=== PATIENT | female | born 1950 | race Caucasian/White ===

== ENCOUNTER → 2018-04-29 | Outpatient (CLI) | payer MEDICARE ==
[2018-05-01 13:07] LABS: DOPAMINE, URINE 69 ug/L (Undefined)
[2018-05-01 18:06] LABS: METANEPHRINE, UR 35 ug/L (Undefined)
[2018-05-03 22:10] LABS: CREATININE, URINE 35.3 mg/dL (Not Estab.)
== END | disposition home or self-care (01) ==
LOC: LAB SHORT 06:00 → LAB 06:00 → LAB FUT 04-26 11:30
PROVIDERS: Internal Medicine
DX: R10.12 Left upper quadrant pain (principal)
CPT/HCPCS: 81050; 82384; 82570; 83497; 83835

== ENCOUNTER → 2018-05-06 | Outpatient (CLI) | payer MEDICARE ==
[2018-05-08 15:06] LABS: HPV 16 Negative (Negative); HPV 18 Negative (Negative); HPV OTHER HR TYPES Negative (Negative)
== END | disposition home or self-care (01) ==
LOC: LAB 17:25 → LAB SHORT 17:25
PROVIDERS: Nurse Practitioner Women's Health
DX: Z12.72 Encounter for screening for malignant neoplasm of vagina (principal)
CPT/HCPCS: 87624; G0123

== ENCOUNTER 2018-06-03 12:52 | Day surgery (SDC) | payer MEDICARE ==
[~2018-06-03] VITALS: Ht 162.6 cm; Wt 59.1 kg
[~2018-06-03 12:52] MED LIST: ALFU10; ATOR10; DILT120; ESTRADIOL1 EAC2; Omeprazole20 M1; Tambocor100 MG
--- NOTE | 2018-06-03 15:02 | NUR ---
06/03/18 1502 Milagro Toney PT. VERBALIZES RIGHT LOWER LIP BEING SORE. PT. SHOWING RN SORE ON HER LIP. PT. INSTRUCTED THAT SHE WAS TRYING TO TALK & PUSHING OUT THE BITE BLOCK & PROBABLY BIT HER LIP. PT. DOES VERBALIZES THAT SHE DOES REMEMBER THAT SHE WAS TRYING TO SAY SOMETHING WITH THE BITE BLOCK IN.
== END 2018-06-03 15:00 | disposition home or self-care (01) ==
LOC: ORSCSDS 12:52
PROVIDERS: Internal Medicine Gastroenterology
PROC: 0DBE8ZX Excision of Large Intestine, Via Natural or Artificial Opening Endoscopic, Diagnostic (ICD-10-PCS; principal; 2018-06-03 14:15)
PROC: 0DB98ZX Excision of Duodenum, Via Natural or Artificial Opening Endoscopic, Diagnostic (ICD-10-PCS; principal; 2018-06-03 14:15)
PROC: 0DB68ZX Excision of Stomach, Via Natural or Artificial Opening Endoscopic, Diagnostic (ICD-10-PCS; principal; 2018-06-03 14:15)
DX: R19.7 Diarrhea, unspecified (principal); K22.10 Ulcer of esophagus without bleeding; K31.7 Polyp of stomach and duodenum; K64.8 Other hemorrhoids; K57.30 Diverticulosis of large intestine without perforation or abscess without bleeding; R10.9 Unspecified abdominal pain; I48.91 Unspecified atrial fibrillation; E78.5 Hyperlipidemia, unspecified; Z79.899 Other long term (current) drug therapy; Z87.891 Personal history of nicotine dependence
CPT/HCPCS: 88305; 88342; J7120

== ENCOUNTER 2018-11-04 04:08 | Observation (INO) | payer MEDICARE ==
[~2018-11-04] VITALS: Ht 162.6 cm; Wt 59.9 kg
[~2018-11-04 04:08] MED LIST changes: -ALFU10; +ALFU10 PO; -ATOR10; +ATOR10 PO; -DILT120; +DILT120 PO; -Omeprazole20 M1; +Omeprazole20 M1 PO; -Tambocor100 MG; +Tambocor100 MG PO
[2018-11-04 05:27] LABS: BASOPHILS ABSOLUTE AUTO 0.07 K/mm3 (0.00-0.23); BASOPHILS PERCENT AUTO 1 % (0-2); EOSINOPHILS ABSOLUTE AUTO 0.15 K/mm3 (0.00-0.68); EOSINOPHILS PERCENT AUTO 2 % (0-6); Hematocrit 37.2 % (33.0-51.0); Hemoglobin 12.6 g/dL (11.5-16.0); IMMATURE GRAN ABSOLUTE AUTO 0.02 K/mm3 (0.00-0.10); IMMATURE GRAN PERCENT AUTO 0 % (0-1); LYMPHOCYTES ABSOLUTE AUTO 1.78 K/mm3 (0.84-5.20); LYMPHOCYTES PERCENT AUTO 22 % (21-46); MONOCYTES ABSOLUTE AUTO 0.59 K/mm3 (0.16-1.47); MONOCYTES PERCENT AUTO 7 % (4-13); Mean Corpuscular HGB 30.1 pg (26.0-34.0); Mean Corpuscular HGB Conc 33.9 g/dL (31.5-36.5); Mean Corpuscular Volume 89 fL (80-100); Mean Platelet Volume 10.9 fL (9.1-12.4); NEUTROPHILS ABSOLUTE AUTO 5.48 K/mm3 (1.96-9.15); NEUTROPHILS PERCENT AUTO 68 % (41-73); Platelet Count 219 K/mm3 (150-400); RDW Coefficient Variation 13.3 % (11.7-14.2); RDW Standard Deviation 43.4 fL (35.1-46.3); Red Blood Cell Count 4.18 M/mm3 (3.80-5.20); White Blood Cell Count 8.09 K/mm3 (4.00-11.30)
[2018-11-04 05:42] LABS: Alanine Aminotransfer (ALT/SGP 22 U/L (12-78); Albumin, Blood 3.5 g/dL (3.4-5.0); Albumin/Globulin Ratio 1.2 (0.8-1.8); Alk Phos 94 U/L (50-136); Anion Gap 7 mmol/L (6-16); Aspartate Aminotrans (AST/SGOT 23 U/L (12-37); Bilirubin, Total 0.2 mg/dL (0.1-1.0); Blood Urea Nitrogen 18 mg/dL (8-24); CO2, Blood 25 mmol/L (21-32); Calcium, Blood 8.6 mg/dL (8.5-10.1); Chloride, Blood 106 mmol/L (98-108); Creatinine, Blood 0.69 mg/dL (0.40-1.00); Glomerular Filtration Rate >60 (60-); Glucose, Blood 99 mg/dL (70-99); Potassium, Blood 3.8 mmol/L (3.5-5.5); Sodium, Blood 138 mmol/L (136-145); Total Protein, Blood 6.5 g/dL (6.4-8.2); Troponin I <0.015 ng/mL (0.000-0.040)
--- NOTE | 2018-11-04 08:16 | NUR ---
ADMIT FROM ER REPORT RECEIVED FROM ER. PT ARRIVED AURE DANIEL AWAKE AND LAUGHING. AMBULATED INTO THTE BATHROOM WITHOUT DIFFICULTY. VOIDED X1. NO DIZZINESS. VSS. WAITING TO GIVE ORDERED POTASSIUM UNTIL PT HAS SOME BREAKFAST TO PREVENT GI UPSET. ECHO CURRENTLY AT BEDSIDE. SINUS GRACE ON MONITOR. NO ECTOPY NOTED. HR 50'S. CONTINUE POT.
[2018-11-04 08:53] LABS: Source, Urine Clean Catch
[2018-11-04 09:06] LABS: Bilirubin, Urine Neg (Neg); Blood, Urine Neg (Neg); Glucose Qualitative, Urine Neg (Neg); Ketones, Urine Neg (Neg); Leukocyte Esterase, Urine Neg (Neg); Nitrite, Urine Neg (Neg); Protein, Urine Neg (Neg); Specific Gravity, Urine 1.005 (1.003-1.022); Urobilinogen, Urine NORM (Normal)
--- NOTE | 2018-11-04 09:07 | NUR ---
echocardiogram completed
[2018-11-04 09:17] LABS: Appearance, Urine Clear (Clear); Color, Urine Pale Yellow (P-Yellow)
--- NOTE | 2018-11-04 11:48 | NUR ---
Upon receiving an admit referral, I visited patient. 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 Patient explained that she would be in the hospital for a couple days and after patient's life partner, Sara arrived, patient thanked me for coming. I will continue to be available to patient and family.
--- NOTE | 2018-11-04 14:44 | NUR ---
NOTE PT AWAKE AND ALERT. VISITING WITH STAFF. SB. RATE 50'S. NO INCREASE IN HR WITH ACTIVITY. SUPPLIED A ROBE AND PANTS. PT WANDERING AROUND SECOND FLOOR. NO DIZZINESS OR SOB. H/L RA. EATING WELL. VOIDING PER BRP. CONTINUE POT.
[2018-11-04 15:40] LABS: CPK Creatine Kinase 108 U/L (26-193); Troponin I <0.015 ng/mL (0.000-0.040)
[2018-11-04 15:55] LABS: Free Thyroxine 0.88 ng/dL (0.70-1.60)
[2018-11-04 15:58] LABS: Thyroid Stimulating Hormone 2.37 uIU/mL (0.360-4.800)
[2018-11-04 23:43] LABS: CPK Creatine Kinase 83 U/L (26-193); Magnesium, Blood 2.1 mg/dL (1.6-2.4); Troponin I <0.015 ng/mL (0.000-0.040)
--- NOTE | 2018-11-05 05:18 | NUR ---
SHIFT SUMMARY PT SLEEPING IN ROOM COMFORTABLY AT THIS TIME. NO ACUTE CHANGES IN STATUS T/O NIGHT. PT SLEPT OFF AND ON, REPORTS DID NOT SLEEP WELL, WOKE SEVERAL TIMES. PT CONTINUED TO DENY ANY CP OR SOB T/O NIGHT. PT REPORTS FEELS GOOD, JUST TIRED. DENIED OTHER NEEDS T/O NIGHT. PT WAS GIVEN TABLE TOP FAN TO HAVE 'WHITE NOISE' IN ROOM TO DROWN OUT OTHER SOUNDS KEEPING PT AWAKE. RESP EVEN UNLBAORED ON RA W/ SATS >92%. HR REMAINS SB IN THE 50'S PER TELE. EKG DONE THIS AM BY METAL CRAFTS TEACHER. CALL LIGHT IN REACH. PT INDEPENDENT IN ROOM.
[2018-11-05 07:14] LABS: Hematocrit 39.1 % (33.0-51.0); Mean Corpuscular HGB 30.2 pg (26.0-34.0); Mean Corpuscular HGB Conc 33.2 g/dL (31.5-36.5); Mean Corpuscular Volume 91 fL (80-100); Mean Platelet Volume 10.5 fL (9.1-12.4); Platelet Count 224 K/mm3 (150-400); RDW Coefficient Variation 13.4 % (11.7-14.2); RDW Standard Deviation 45.4 fL (35.1-46.3); Red Blood Cell Count 4.31 M/mm3 (3.80-5.20); White Blood Cell Count 5.86 K/mm3 (4.00-11.30)
[2018-11-05 07:36] LABS: Alanine Aminotransfer (ALT/SGP 22 U/L (12-78); Albumin, Blood 3.4 g/dL (3.4-5.0); Albumin/Globulin Ratio 1.1 (0.8-1.8); Alk Phos 83 U/L (50-136); Anion Gap 4 mmol/L (6-16); Aspartate Aminotrans (AST/SGOT 21 U/L (12-37); Bilirubin, Total 0.3 mg/dL (0.1-1.0); Blood Urea Nitrogen 10 mg/dL (8-24); CO2, Blood 26 mmol/L (21-32); Calcium, Blood 8.9 mg/dL (8.5-10.1); Chloride, Blood 109 mmol/L (98-108); Creatinine, Blood 0.71 mg/dL (0.40-1.00); Glomerular Filtration Rate >60 (60-); Glucose, Blood 93 mg/dL (70-99); Potassium, Blood 4.1 mmol/L (3.5-5.5); Sodium, Blood 139 mmol/L (136-145); Total Protein, Blood 6.4 g/dL (6.4-8.2)
--- NOTE | 2018-11-05 09:20 | NUR ---
DISCUSSED PT'S STATUS WITH DR SHARMA.
--- NOTE | 2018-11-05 10:02 | NUR ---
PT AMBULATED IN HALLWAY FOR 10+ MINUTES. TELE REPORTS HR STAYED IN 70'S WITH NO EVENTS. DR MENDENHALL NOTIFIED. PT AMBULATED WITH STEADY GAIT.
--- NOTE | 2018-11-05 18:16 | NUR ---
SHIFT SUMMARY PT EATING AND DRINKING WELL. PT VOIDING AND REPORTED TO HAVE REGULAR BM'S TODAY. PT IND WITH STEADY GAIT. PT HAD 10 MINUTE WALK EARLIER WITH NO EVENTS. PT BEEN ASSISTED WITH ADL'S PRN.
--- NOTE | 2018-11-06 05:28 | NUR ---
SHIFT SUMMARY PT SLEEPING IN ROOM COMFORTABLY AT THIS TIME. NO ACUTE CHANGES NI STATUS T/O NIGHT. PT DENIED CP OR SOB/ RESP EVEN UNLBAORED ON RA W. SATS >92%. DENIES OTHER NEEDS. PT INDEPENDENT IN ROOM. CALL LIGHT IN REACH.
--- NOTE | 2018-11-06 08:21 | NUR ---
AM NOTE. ASSUMED CARE OF PT APROX 0700, PT IS A&Ox4 AND IND IN THE ROOM. PT'S CURRENT HR IN THE 60'S-70'S PER LEAD FURNACE OPERATOR. PT DENIES ANY CHEST PAIN/PRESSURE SOB OR N/V. NO EVENTS NOTED ON TELE OVER NIGHT. CARDOLOGY PROVIDER IN THE ROOM THIS AM AND STATES PT IS OKAY TO D/C FROM CARDIOLOGY STANDPOINT. PT'S VS STABLE AT THIS TIME. L/S CLEAR T/O. NO EDEMA NOTED ON ASSESSMENT. WILL CONTINUE TO MONITOR.
[2018-11-06] MEDS ORDERED: ASPI81CH PO (10:27)
== END 2018-11-06 12:09 | disposition home or self-care (01) ==
LOC: ER 04:08 → PCU 04:09 → ER 07:04 → PCU 07:15
PROVIDERS: Emergency Medicine; ADMIT Internal Medicine
DX: R00.1 Bradycardia, unspecified (principal); R07.89 Other chest pain; R42 Dizziness and giddiness; Z79.899 Other long term (current) drug therapy; Z88.1 Allergy status to other antibiotic agents; Z91.040 Latex allergy status; Z88.8 Allergy status to other drugs, medicaments and biological substances; Z88.2 Allergy status to sulfonamides; Z88.5 Allergy status to narcotic agent; Z88.0 Allergy status to penicillin
CPT/HCPCS: 36415; 71046; 80053; 81003; 82550; 83735; 84439; 84443; 84484; 85025; 85027; 93005; 93010; 93306; 96360; 96372; 99284-25; G0378; J1650; J7030

== ENCOUNTER → 2018-12-17 | Outpatient (CLI) | payer MEDICARE ==
[~2018-12-17] MED LIST changes: +ASPI81CH PO
[2018-12-17 11:03] LABS: Source, Urine Clean Catch
[2018-12-17 12:58] LABS: Bilirubin, Urine Neg (Neg); Blood, Urine Neg (Neg); Glucose Qualitative, Urine Neg (Neg); Ketones, Urine Neg (Neg); Leukocyte Esterase, Urine Neg (Neg); Nitrite, Urine Neg (Neg); Protein, Urine Neg (Neg); Specific Gravity, Urine 1.005 (1.003-1.022); Urobilinogen, Urine NORM (Normal)
[2018-12-17 13:10] LABS: Appearance, Urine Clear (Clear); Color, Urine Yellow (P-Yellow)
== END | disposition home or self-care (01) ==
LOC: LAB 11:02 → LAB SHORT 11:02
PROVIDERS: Internal Medicine
DX: R30.0 Dysuria (principal)
CPT/HCPCS: 81003

== ENCOUNTER 2019-04-03 06:58 | Day surgery (SDC) | payer MEDICARE ==
[~2019-04-03] VITALS: Ht 162.6 cm; Wt 61.0 kg
[~2019-04-03 06:58] MED LIST changes: +Align4 MG PO; +ESTRADIOL TD
[2019-04-03 07:45] LABS: BASOPHILS ABSOLUTE AUTO 0.08 K/mm3 (0.00-0.23); BASOPHILS PERCENT AUTO 1 % (0-2); EOSINOPHILS ABSOLUTE AUTO 0.14 K/mm3 (0.00-0.68); EOSINOPHILS PERCENT AUTO 2 % (0-6); Hematocrit 42.4 % (33.0-51.0); Hemoglobin 13.7 g/dL (11.5-16.0); IMMATURE GRAN ABSOLUTE AUTO 0.02 K/mm3 (0.00-0.10); IMMATURE GRAN PERCENT AUTO 0 % (0-1); LYMPHOCYTES ABSOLUTE AUTO 2.21 K/mm3 (0.84-5.20); LYMPHOCYTES PERCENT AUTO 32 % (21-46); MONOCYTES ABSOLUTE AUTO 0.46 K/mm3 (0.16-1.47); MONOCYTES PERCENT AUTO 7 % (4-13); Mean Corpuscular HGB 29.7 pg (26.0-34.0); Mean Corpuscular HGB Conc 32.3 g/dL (31.5-36.5); Mean Corpuscular Volume 92 fL (80-100); Mean Platelet Volume 10.3 fL (9.1-12.4); NEUTROPHILS ABSOLUTE AUTO 4.08 K/mm3 (1.96-9.15); NEUTROPHILS PERCENT AUTO 58 % (41-73); Platelet Count 244 K/mm3 (150-400); RDW Coefficient Variation 13.4 % (11.7-14.2); RDW Standard Deviation 45.4 fL (35.1-46.3); Red Blood Cell Count 4.62 M/mm3 (3.80-5.20); White Blood Cell Count 6.99 K/mm3 (4.00-11.30)
[2019-04-03 07:59] LABS: International Normalized Ratio 0.92; Prothrombin Time Results 9.9 Sec (9.7-11.5)
[2019-04-03 08:04] LABS: Anion Gap 5 mmol/L (6-16); Blood Urea Nitrogen 18 mg/dL (8-24); Bun/Creatinine Ratio 25.6 (12.0-20.0); CO2, Blood 29 mmol/L (21-32); Calcium, Blood 9.3 mg/dL (8.5-10.1); Chloride, Blood 108 mmol/L (98-108); Glomerular Filtration Rate >60 (60-); Glucose, Blood 80 mg/dL (70-99); Potassium, Blood 4.1 mmol/L (3.5-5.5); Sodium, Blood 142 mmol/L (136-145)
--- NOTE | 2019-04-03 09:10 | NUR ---
PT TO RECOVERY ROOM POST PROCEDURE. PT IS AWAKE AND ANSWERING QUESTIONS APPROPRIATELY. PT DENIES PAIN OR DISCOMFORT POST PROCEDURE. MONITOR SB/SR 50-60, B/P 165/77, AFEBRILE, SPO2 97% RA. R RADIAL SITE NO SWELLING/HEMATOMA, TR BAND IN PLACE 12 CC AIR. PT'S SO AT THE BEDSIDE, ATTENTIVE.
--- NOTE | 2019-04-03 12:25 | NUR ---
PT GOT DRESSED WITH MINIMAL ASSISTANCE, SITE UNCHANGED, TR BAND REMOVED AND CLOTH DOT APPLIED WITH WRIST IMMOBILIZER; IV REMOVED-CANNULA INTACT. PT AND S.O. RECEIVED DISCHARGE INSTRUCTIONS, MED LIST AND "AFTER CARE" INSTRUCTIONS; VERBALIZED GOOD UNDERSTANDING.
--- NOTE | 2019-04-03 12:34 | NUR ---
PT LEFT FACILITY VIA W/C, CONDITION STABLE.
== END 2019-04-03 12:34 | disposition home or self-care (01) ==
LOC: MHTC 06:58
PROVIDERS: Internal Medicine Cardiovascular Disease
PROC: 4A023N8 Measurement of Cardiac Sampling and Pressure, Bilateral, Percutaneous Approach (ICD-10-PCS; principal; 2019-04-03)
PROC: B2111ZZ Fluoroscopy of Multiple Coronary Arteries using Low Osmolar Contrast (ICD-10-PCS; principal; 2019-04-03)
DX: I20.9 Angina pectoris, unspecified (principal); R94.30 Abnormal result of cardiovascular function study, unspecified; I10 Essential (primary) hypertension; I48.0 Paroxysmal atrial fibrillation; R00.1 Bradycardia, unspecified; I47.1 Supraventricular tachycardia; E78.5 Hyperlipidemia, unspecified; K21.9 Gastro-esophageal reflux disease without esophagitis; M81.0 Age-related osteoporosis without current pathological fracture; M19.90 Unspecified osteoarthritis, unspecified site; G43.909 Migraine, unspecified, not intractable, without status migrainosus; Z90.49 Acquired absence of other specified parts of digestive tract; Z90.710 Acquired absence of both cervix and uterus; Z87.81 Personal history of (healed) traumatic fracture; Z88.0 Allergy status to penicillin; Z88.1 Allergy status to other antibiotic agents; Z88.2 Allergy status to sulfonamides; Z88.5 Allergy status to narcotic agent; Z88.8 Allergy status to other drugs, medicaments and biological substances; Z91.040 Latex allergy status; Z91.048 Other nonmedicinal substance allergy status; Z79.82 Long term (current) use of aspirin; Z79.899 Other long term (current) drug therapy
CPT/HCPCS: 80048; 85025; 85610; 93005; 93010; 93454; 99152; C1769; C1894; J1200; J1644; J1720; J2250; J3010; J3490; J7030; Q9967

== ENCOUNTER → 2020-07-19 | Outpatient (CLI) | payer MEDICARE ==
[2020-07-19 17:55] LABS: Bilirubin, Urine Neg (Neg); Blood, Urine 1+ (Neg); Glucose Qualitative, Urine Neg (Neg); Ketones, Urine Neg (Neg); Leukocyte Esterase, Urine Neg (Neg); Nitrite, Urine Neg (Neg); Protein, Urine Neg (Neg); Urobilinogen, Urine NORM (Normal)
[2020-07-19 18:04] LABS: Appearance, Urine Clear (Clear); Color, Urine Pale Yellow (P-Yellow)
[2020-07-19 18:05] LABS: Bacteria Mod /hpf; Red Blood Cells, Urine 0-2 /hpf (0-2); Squamous Epithelial Cells Few /hpf (Few); White Blood Cells, Urine 0-2 /hpf (0-5)
== END ==
LOC: LAB SHORT 16:00 → LAB FUT 07-19 14:35
PROVIDERS: Internal Medicine
DX: R10.9 Unspecified abdominal pain (principal)
CPT/HCPCS: 81001; 87086

== ENCOUNTER → 2020-10-20 | Outpatient (CLI) | payer MEDICARE ==
[2020-10-20 17:15] LABS: Adenovirus F 40/41 Not Detected (NOT DETECT); Astrovirus Not Detected (NOT DETECT); Campylobacter Sp Not Detected (NOT DETECT); Cryptosporidium Not Detected (NOT DETECT); Cyclospora Cayetanensis Not Detected (NOT DETECT); E. Coli O157 Not Detected (NOT DETECT); Entamoeba Histolytica Not Detected (NOT DETECT); Enteroaggregative E. coli-EAEC Not Detected (NOT DETECT); Enteropathogenic E. coli-EPEC Not Detected (NOT DETECT); Enterotoxigenic E. coli-ETEC Not Detected (NOT DETECT); Giardia Lamblia Not Detected (NOT DETECT); Norovirus GI/GII Not Detected (NOT DETECT); Plesiomonas Shigelloides Not Detected (NOT DETECT); Rotavirus A Not Detected (NOT DETECT); Salmonella Sp Not Detected (NOT DETECT); Sapovirus Not Detected (NOT DETECT); Shiga Toxin-prod E. coli-STEC Not Detected (NOT DETECT); Shigella/Enteroin E. coli-EIEC Not Detected (NOT DETECT); Vibrio Cholerae Not Detected (NOT DETECT); Vibrio Sp Not Detected (NOT DETECT); Yersinia Enterocolitica Not Detected (NOT DETECT)
== END | disposition home or self-care (01) ==
LOC: EDSTATUS 11:32 → LAB 12:10 → LAB SHORT 12:10
PROVIDERS: Internal Medicine
DX: R19.7 Diarrhea, unspecified (principal)
CPT/HCPCS: 0097U